=== PATIENT | male | born 1980 | race Two or more races ===

== ENCOUNTER 2017-11-12 18:17 | Emergency (ER) | payer SELFPAY ==
[2017-11-12] MEDS ORDERED: NS 1,000 ML IV ONE ×2 (18:29→19:55)
[2017-11-12] MEDS ORDERED: ONDANSETRON 4 MG/2 ML VIAL IVP ONE (18:32)
[2017-11-12 18:56] LABS: PLATELET COUNT 347 10^3/uL (150-400)
[2017-11-12] MEDS ORDERED: METOCLOPRAMIDE 10 MG/2 ML VIAL IVP ONE (18:56)
[2017-11-12] MEDS ORDERED: LORazepam 2 MG/ML INJ IVP ONE (18:56)
--- NOTE | 2017-11-12 19:02 | EDPHY ---
H & P Stated Complaint: c/o upper abd pain w/N/V/D since last friday- 2nd episode since Sep Time Seen by Provider: 11/12/17 18:28 HPI/ROS: This pt. reports onset opf epigastric pain 5 days [facility] (on Friday) with constant pain since that has increased gradually in intensity to current severe "sharp" pain that radiates to his back and into his chest. After onset of the pain, he developed associated nausea and vomiting daily since. He tried maalox and tylenol without improvement. He feels that the epigastric pain increases 2 hrs or so after food. He also feels that the epigastric pain radiates up into his chest. Had a similar episode of lesser intensity lesser duration last year was seen and treated at a local emergency department but is not recall the name of the emergency department. ROS: Constitutional: No fevers. HEENT: No URI symptoms Pulmonary: No cough shortness of breath. Cardiovascular: No lightheadedness. GI: No hematemesis or dark tarry emesis. Bowel movements he reports that been watery with no blood. : No flank pain. No dysuria. No testicular pain. Integumentary: No skin rash. No diaphoresis Neuro: Paresthesias to the hands and face. He admits associated anxiety. Source: Patient Exam Limitations: No limitations - Medical/Surgical History Other PMH: back surg - Family History Significant Family History: No pertinent family hx - Social History Smoking Status: Light smoker Alcohol Use: Occasionally (Once a week or so. He has not had any alcohol since the onset of illness.) Drug Use: Marijuana (Typically once daily use by his report, however he has not used it this week since becoming sick.) - Physical Exam Exam: General Appearance: Alert, no distress. Eyes: Pupils equal and round no pallor or injection. ENT, Mouth: Mucous membranes moist. Respiratory: There are no retractions, lungs are clear to auscultation. Cardiovascular: Regular rate and rhythm. No murmur gallop or rub Gastrointestinal: Hypoactive bowel sounds, moderate epigastric and right upper quadrant tenderness with no guarding or rebound. Neurological: GCS of 15 Skin: Warm and dry, no rashes. Musculoskeletal: Neck is supple nontender. Extremities are symmetrical, full range of motion. Psychiatric: Patient is anxious. Mood and affect are otherwise normal. DIFFERENTIAL DIAGNOSIS: After history and physical exam differential diagnosis was considered for marijuana hyperemesis syndrome, hepatitis, pancreatitis, gastritis, ulcer, viral gastroenteritis, dehydration, myocardial ischemic disease Constitutional: Initial Vital Signs Temperature (C) 36.6 C 11/12/17 18:26 Heart Rate 65 11/12/17 18:26 Respiratory Rate 20 11/12/17 18:26 Blood Pressure 134/90 H 11/12/17 18:26 O2 Sat (%) 100 11/12/17 18:26 O2 Delivery Mode Room Air Allergies/Adverse Reactions: No Known Allergies Allergy (Unverified 11/12/17 18:26) Home Medications: Medication Instructions Recorded Ondansetron Odt [Zofran Odt] 4 - 8 mg PO Q4PRN PRN #4 tab 11/12/17 Medical Decision Making - Diagnostics EKG Interpretation: 12 lead EKG performed shortly after arrival at 7:10 p.m. Indication chest pain Sinus rhythm at 60 Intervals: Normal throughout [place]: Normal throughout ST segments: Normal throughout Overall assessment: Normal EKG ED Course/Re-evaluation: IV normal saline bolus x2 L IV Zofran, Reglan, Benadryl, Haldol and Ativan followed by Maalox with resolution of his nausea and improvement of his abdominal pain down to 4/10. Labs: CBC reveals leukocytosis. No anemia. Platelets normal. Comp metabolic panel is normal. Lipase is normal. Urinalysis is normal with exception of ketones and occurs copy hematuria. Discussion: Patient with vomiting diarrhea epigastric and chest pain and dehydration improved with treatment. Possibilities for this patient is a element include viral gastroenteritis with associated gastritis causing upper belly pain. He may have marijuana hyperemesis syndrome. We ruled out hepatitis , pancreatitis, cholecystitis with normal CMP and lipase. I think that his leukocytosis is attributable to stress response and pain. Urinalysis also rule out UTI. His EKG is normal and not think his chest pain is cardiac or pulmonary in etiology brother related to GERD and esophagitis. Plan to send him home with Zofran, [id number] antacid and Maalox. Also counseled and use Imodium if needed for diarrhea. I also counseled him to stop marijuana for least a period of time as this may contribute to the vomiting. He understands need to return emergency department she developed worsening symptoms despite the treatment plan. Will follow up with primary care physician for any ongoing symptoms. - Data Points Laboratory Results: Laboratory Results 11/12/17 18:50 11/12/17 18:50 11/12/17 11/12/17 11/12/17 19:20 18:50 18:50 WBC 18.90 10^3/uL H 10^3/uL (3.80-9.50) RBC 5.44 10^6/uL 10^6/uL (4.40-6.38) Hgb 17.4 g/dL g/dL (13.7-17.5) Hct 46.8 % % (40.0-51.0) MCV 86.0 fL fL (81.5-99.8) MCH 32.0 pg pg (27.9-34.1) MCHC 37.2 g/dL H g/dL (32.4-36.7) RDW 11.5 % % (11.5-15.2) Plt Count 347 10^3/uL 10^3/uL (150-400) MPV 10.3 fL fL (8.7-11.7) Neut % (Auto) 87.9 % H % (39.3-74.2) Lymph % (Auto) 7.1 % L % (15.0-45.0) [place] % (Auto) 4.1 % L % (4.5-13.0) Eos % (Auto) 0.3 % L % (0.6-7.6) Baso % (Auto) 0.2 % L % (0.3-1.7) Nucleat RBC Rel Count 0.0 % % (0.0-0.2) Absolute Neuts (auto) 16.64 10^3/uL H 10^3/uL (1.70-6.50) Absolute Lymphs (auto) 1.34 10^3/uL 10^3/uL (1.00-3.00) Absolute Monos (auto) 0.77 10^3/uL 10^3/uL (0.30-0.80) Absolute Eos (auto) 0.05 10^3/uL 10^3/uL (0.03-0.40) Absolute Basos (auto) 0.03 10^3/uL 10^3/uL (0.02-0.10) Absolute Nucleated RBC 0.00 10^3/uL 10^3/uL (0-0.01) Immature Gran % 0.4 % % (0.0-1.1) Immature Gran # 0.07 10^3/uL 10^3/uL (0.00-0.10) Sodium 135 mEq/L mEq/L (135-145) Potassium 3.5 mEq/L mEq/L (3.5-5.2) Chloride 100 mEq/L mEq/L (97-110) Carbon Dioxide 24 mEq/l mEq/l (22-31) Anion Gap 11 mEq/L mEq/L (8-16) BUN 15 mg/dL mg/dL (7-23) Creatinine 0.9 mg/dL mg/dL (0.7-1.3) Estimated GFR > 60 Glucose 157 mg/dL H mg/dL (70-100) Calcium 9.6 mg/dL mg/dL (8.5-10.4) Total Bilirubin 1.3 mg/dL mg/dL (0.1-1.4) AST 18 IU/L IU/L (17-59) ALT 28 IU/L IU/L (21-72) Alkaline Phosphatase 57 IU/L IU/L (38-126) Total Protein 7.6 g/dL g/dL (6.3-8.2) Albumin 4.4 g/dL g/dL (3.5-5.0) Lipase 46 IU/L IU/L (23-300) Urine Color YELLOW Urine Appearance HAZY Urine pH 7.0 (5.0-7.5) Ur Specific [place] 1.020 (1.002-1.030) Urine Protein NEGATIVE (NEGATIVE) Urine Ketones 2+ H (NEGATIVE) Urine Blood 1+ H (NEGATIVE) Urine Nitrate NEGATIVE (NEGATIVE) Urine Bilirubin NEGATIVE (NEGATIVE) Urine Urobilinogen 0.2 EU EU (0.2-1.0) Ur Leukocyte Esterase NEGATIVE (NEGATIVE) Urine RBC 3-5 /hpf H /hpf (0-3) Urine WBC 0-1 /hpf /hpf (0-3) Ur Epithelial Cells TRACE /lpf /lpf (NONE-1+) Urine Bacteria 1+ /hpf H /hpf (NONE SEEN) Urine Mucus 2+ /lpf H /lpf (NONE-1+) Urine Glucose NEGATIVE (NEGATIVE) Medications Given: Discontinued Medications Al Hydroxide/Mg Hydroxide (Maalox Susp) 30 ml PO EDNOW ONE Stop: 11/12/17 20:09 Last Admin: 11/12/17 20:36 Dose: 30 ml Diphenhydramine HCl (Benadryl Injection) 25 mg IVP EDNOW ONE Stop: 11/12/17 18:57 Last Admin: 11/12/17 19:04 Dose: 25 mg Haloperidol Lactate (Haldol Injection) 2.5 mg IVP EDNOW ONE Stop: 11/12/17 19:56 Last Admin: 11/12/17 20:00 Dose: 2.5 mg Sodium Chloride (Ns) 1,000 mls @ 0 mls/hr IV EDNOW ONE; Wide Open PRN Reason: Protocol Stop: 11/12/17 18:30 Last Admin: 11/12/17 18:52 Dose: 1,000 mls Sodium Chloride (Ns) 1,000 mls @ 0 mls/hr IV ONCE ONE; Wide Open PRN Reason: Protocol Stop: 11/12/17 19:56 Last Admin: 11/12/17 20:00 Dose: 1,000 mls Lorazepam (Ativan Injection) 1 mg IVP EDNOW ONE Stop: 11/12/17 18:57 Last Admin: 11/12/17 19:04 Dose: 1 mg Metoclopramide HCl (Reglan Injection) 10 mg IVP EDNOW ONE Stop: 11/12/17 18:57 Last Admin: 11/12/17 19:04 Dose: 10 mg Ondansetron HCl (Zofran) 4 mg IVP EDNOW ONE Stop: 11/12/17 18:33 Last Admin: 11/12/17 18:49 Dose: 4 mg Ondansetron HCl (Zofran Odt 4 Mg Prepack#2) 1 btl TAKEHOME EDNOW ONE Stop: 11/12/17 20:47 Last Admin: 11/12/17 20:51 Dose: 1 btl Departure - Departure Disposition: Home, Routine, Self-Care Clinical Impression: Gastroenteritis, Dehydration, Epigastric pain Condition: Good Instructions: Ondansetron (By mouth), Gastroenteritis (ED), Acute Abdominal Pain (ED) Additional Instructions: Diagnosis: 1. Gastroenteritis 2. Dehydration 3. Upper abdominal pain Plan: Zofran 4-8 mg under the tongue per 6 hrs if needed for nausea vomiting Light diet until he feel improved Imodium if needed for diarrhea Maalox if needed for upper belly pain Pepcid 40 mg a day or Prilosec 40 mg a [id number] antacids for the next 7-10 days Consider stopping marijuana for period of time as this can contribute to vomiting when taken regularly. Return for any significant worsening despite the treatment plan Follow up with primary care physician for any ongoing symptoms despite treatment plan. Referrals: NONE *PRIMARY CARE P,. [Primary Care Provider] - As per Instructions Javier Hutchison MD [[facility] [place] Primary Care Provider] - As per Instructions Prescriptions: Ondansetron Odt [Zofran Odt] 4 - 8 mg PO Q4PRN PRN #4 tab PRN Reason: Vomiting
--- NOTE | 2017-11-12 19:12 | CPEKG ---
Heart Rate: 60 RR Interval: 1000 P-R Interval: 144 QRSD Interval: 96 QT Interval: 428 QTC Interval: 428 P [place]: 29 QRS [place]: 26 T Wave [place]: 70 EKG Severity - NORMAL ECG - EKG Impression: SINUS RHYTHM Electronically Signed By: Lauro Chase 12-Nov-2017 22:16:36
[2017-11-12] MEDS ORDERED: HALOPERIDOL LACT 5 MG/ML INJ IVP ONE (19:55)
[2017-11-12] MEDS ORDERED: MAG HYDROX/AL HYDROX/SIMETH 30 ML UDCUP PO ONE (20:08)
[2017-11-12] MEDS ORDERED: ONDANSETRON 4MG PREPACK#2 BTL TAKEHOME ONE (20:46)
[2017-11-12 21:04] VITALS: BP 119/63
== END 2017-11-12 21:09 | disposition home or self-care (01) ==
LOC: CED 18:17
DX: K52.9 Noninfective gastroenteritis and colitis, unspecified (principal); E86.0 Dehydration; F17.200 Nicotine dependence, unspecified, uncomplicated; E86.9 Volume depletion, unspecified
CPT/HCPCS: 80053-PO; 81003-PO; 81015-PO; 83690-PO; 85025-PO; 96374; J1200; J1630; J2060; J2405; J2765